=== PATIENT | female | born 2000 | race American Indian/Alaskan Native ===

== ENCOUNTER 2022-01-05 09:04 | Emergency (ER) | payer BC ==
[2022-01-05 09:19] VITALS: BP 101/61
[2022-01-05 11:07] LABS: Bilirubin,Urine NEG (Negative); Blood,Urine NEG (Negative); Color,Urine Yellow (Yellow); Mucus,Urine FEW /HPF; Protein,Urine <15 mg/dL mg/dL (Negative); Urobilinogen,Urine < 2.0 mg/dL (<2.0)
[2022-01-05 11:07] LABS: Hematocrit 39.6 % (30.3-42.9); Hemoglobin 12.9 gm/dl (10.1-14.3); Mean Corpuscular HGB Conc 33 % (30-34); Mean Corpuscular Volume 96 fl (79-97); Platelet Count 237 K/mm3 (140-440); Red Blood Count 4.11 M/mm3 (3.65-5.03); Red Cell Distribution Width 12.3 % (13.2-15.2)
[2022-01-05 11:12] LABS: Blood Urea Nitrogen 11 mg/dL (7-17); Calcium 9.1 mg/dL (8.4-10.2); Hemolysis Index 1
[2022-01-05 11:14] LABS: BUN/Creatinine Ratio 18
--- NOTE | 2022-01-05 11:52 | Emergency Department Report ---
ED Female HPI - General Chief complaint: Vaginal Bleeding Stated complaint: 9 OR 10 WEEKS PREG POSS MISCARRIAGE Time Seen by Provider: 01/05/22 09:57 Source: patient Mode of arrival: Ambulatory Limitations: No Limitations - History of Present Illness Initial comments: Patient is a 21-year-old female that comes to the emergency room complaining of vaginal bleeding. She states that she is . Patient has abdominal cramping. She states that she originally started to have spotting but then it progressed to heavier bleeding. She denies vaginal discharge. This is not her first . She has not seen an CASE MANAGEMENT COORDINATOR. Last menstrual period 10/12 On arrival to fast track patient is ambulatory and [id number]. MD Complaint: vaginal bleeding -: Gradual, days(s) Severity: mild Quality: cramping Worsens with: none Are you Now?: Yes Associated Symptoms: denies other symptoms, vaginal bleeding - Related Data Sexually active: Yes Allergies Allergy/AdvReac Type Severity Reaction Status Date / Time No Known Allergies Allergy Unverified 01/05/22 09:18 ED Review of Systems ROS: Stated complaint: 9 OR 10 WEEKS PREG POSS MISCARRIAGE Other details as noted in HPI Comment: All other systems reviewed and negative ED Past Medical Hx - Past Medical History Previous Medical History?: No - Surgical History Past Surgical History?: No - Family History Family history: no significant - Social History Smoking Status: Never Smoker Substance Use Type: Alcohol ED Physical Exam - General Limitations: No Limitations General appearance: alert, in no apparent distress - Head Head exam: Present: atraumatic, normocephalic - Eye Eye exam: Present: normal appearance - ENT ENT exam: Present: mucous membranes moist - Neck Neck exam: Present: normal inspection - Respiratory Respiratory exam: Present: normal lung sounds bilaterally. Absent: respiratory distress - Cardiovascular Cardiovascular Exam: Present: regular rate, normal rhythm. Absent: systolic murmur, diastolic murmur, rubs, gallop - GI/Abdominal GI/Abdominal exam: Present: soft, normal bowel sounds - Extremities Exam Extremities exam: Present: normal inspection - Back Exam Back exam: Present: normal inspection - Neurological Exam Neurological exam: Present: alert, oriented X3 - Psychiatric Psychiatric exam: Present: normal affect, normal mood - Skin Skin exam: Present: warm, dry, intact, normal color. Absent: rash ED Course Vital Signs 01/05/22 01/05/22 09:16 10:21 Temperature 97.9 F Pulse Rate 76 Respiratory 14 16 Rate Blood Pressure 101/61 O2 Sat by Pulse 98 99 Oximetry ED Medical Decision Making - Lab Data Result diagrams: 01/05/22 09:58 01/05/22 09:58 - Medical Decision Making Lab Results 01/05/22 01/05/22 01/05/22 Range/Units 09:58 09:58 09:58 WBC 4.1 L (4.5-11.0) K/mm3 RBC 4.11 (3.65-5.03) M/mm3 Hgb 12.9 (10.1-14.3) gm/dl Hct 39.6 (30.3-42.9) % MCV 96 (79-97) fl MCH 31 (28-32) pg MCHC 33 (30-34) % RDW 12.3 L (13.2-15.2) % Plt Count 237 (140-440) K/mm3 Sodium 136 L (137-145) mmol/L Potassium 4.1 (3.6-5.0) mmol/L Chloride 103.5 (98-107) mmol/L Carbon Dioxide 25 (22-30) mmol/L Anion Gap 12 mmol/L BUN 11 (7-17) mg/dL Creatinine 0.6 (0.6-1.2) mg/dL Estimated GFR > 60 ml/min BUN/Creatinine Ratio 18 % Glucose 96 (65-100) mg/dL Calcium 9.1 (8.4-10.2) mg/dL HCG, Quant 15640 H (0-4) mIU/mL Urine Color (Yellow) Urine Turbidity (Clear) Urine pH (5.0-7.0) Ur Specific [place] (1.003-1.030) Urine Protein (Negative) mg/dL Urine Glucose (UA) (Negative) mg/dL Urine Ketones (Negative) mg/dL Urine Blood (Negative) Urine Nitrite (Negative) Urine Bilirubin (Negative) Urine Urobilinogen (<2.0) mg/dL Ur Leukocyte Esterase (Negative) Urine WBC (Auto) (0.0-6.0) /HPF Urine RBC (Auto) (0.0-6.0) /HPF U Epithel Cells (Auto) (0-13.0) /HPF Urine WBC Clumps /HPF Urine Mucus /HPF Urine Yeast (Budding) /HPF Blood Type Ord Rhogam Gestat Weeks WEEKS 01/05/22 01/05/22 Range/Units 10:09 Unknown WBC (4.5-11.0) K/mm3 RBC (3.65-5.03) M/mm3 Hgb (10.1-14.3) gm/dl Hct (30.3-42.9) % MCV (79-97) fl MCH (28-32) pg MCHC (30-34) % RDW (13.2-15.2) % Plt Count (140-440) K/mm3 Sodium (137-145) mmol/L Potassium (3.6-5.0) mmol/L Chloride (98-107) mmol/L Carbon Dioxide (22-30) mmol/L Anion Gap mmol/L BUN (7-17) mg/dL Creatinine (0.6-1.2) mg/dL Estimated GFR ml/min BUN/Creatinine Ratio % Glucose (65-100) mg/dL Calcium (8.4-10.2) mg/dL HCG, Quant (0-4) mIU/mL Urine Color Yellow (Yellow) Urine Turbidity Cloudy (Clear) Urine pH 7.0 (5.0-7.0) Ur Specific [place] 1.023 (1.003-1.030) Urine Protein <15 mg/dl (Negative) mg/dL Urine Glucose (UA) Neg (Negative) mg/dL Urine Ketones Neg (Negative) mg/dL Urine Blood Neg (Negative) Urine Nitrite Neg (Negative) Urine Bilirubin Neg (Negative) Urine Urobilinogen < 2.0 (<2.0) mg/dL Ur Leukocyte Esterase Tr (Negative) Urine WBC (Auto) 20.0 H (0.0-6.0) /HPF Urine RBC (Auto) 4.0 (0.0-6.0) /HPF U Epithel Cells (Auto) 3.0 (0-13.0) /HPF Urine WBC Clumps 2+ /HPF Urine Mucus Few /HPF Urine Yeast (Budding) 2+ /HPF Blood Type O POSITIVE Ord Rhogam Gestat Weeks Rh pos WEEKS Vital Signs 01/05/22 01/05/22 09:16 10:21 Temperature 97.9 F Pulse Rate 76 Respiratory 14 16 Rate Blood Pressure 101/61 O2 Sat by Pulse 98 99 Oximetry 1200 patient left ER AMA, she has to get her children. AMA form signed. - Differential Diagnosis Rule out AB Critical care attestation.: If time is entered above; I have spent that time in minutes in the direct care of this critically ill patient, excluding procedure time. ED Disposition Clinical Impression: Vaginal bleeding during Disposition: 07 LEFT AGAINST MEDICAL ADVICE Is pt being admited?: No Does the pt Need Aspirin: No Condition: Stable Referrals: RADHA MARTINEZ MD [Primary Care Provider] - 3-5 Days Time of Disposition: 12:04
[2022-01-05] MEDS ORDERED: cefTRIAXone/NS 1 GM/50 ML 1 GM/50 ML BAG IV ONE (11:53)
[2022-01-05] MEDS ORDERED: SODIUM CHLORIDE 0.9% 1000 ML 1,000 ML IV ONE (11:53)
--- NOTE | 2022-01-05 12:27 | Ultrasound Report ---
[facility] OBSTETRIC ULTRASOUND HISTORY: Vaginal bleeding during COMPARISON: None. TECHNIQUE: Routine transabdominal OB ultrasound performed. FINDINGS: Uterus: Mildly enlarged measuring 11.4 x 6.9 x 8.3 cm. Gestational Sac: Well-defined oval shape and intrauterine in location. Yolk Sac: Normal in appearance. Fetus/Embryo: [place]-rump length of 3.6 cm, corresponding to an estimated gestational age of 10 weeks 3 days. Embryonic/ anatomy is too small for evaluation. Embryonic/ cardiac activity: 156bpm Placenta: Too small for evaluation. Amniotic fluid volume: Subjectively appropriate for gestational age. Ovaries: The right ovary is normal in size and appearance with normal blood flow, measuring 3.7 x 2. 7 x 3.4 cm. The left ovary is normal in size and appearance with normal blood flow, measuring 2.8 x 1.6 x 3.1 cm. A 2.6 cm simple appearing cyst is identified in the right ovary. Additional findings: None. IMPRESSION Early live intrauterine . No acute abnormality identified. 2.6 cm right ovarian cyst. Signer Name: Chacorta Fish Jr, MD Signed: 01/05/2022 12:22 PM Workstation Name: [id number]
== END 2022-01-05 12:08 | disposition left against medical advice (07) ==
LOC: ED 09:04
DX: O26.891 Other specified pregnancy related conditions, first trimester (principal); O46.91 Antepartum hemorrhage, unspecified, first trimester; F10.20 Alcohol dependence, uncomplicated; Z3A.10 10 weeks gestation of pregnancy
CPT/HCPCS: 36415; 76801; 80048; 81001; 84702; 85027; 86900; 86901; 87086; 99284

== ENCOUNTER 2022-01-05 15:10 | Emergency (ER) | payer BC ==
--- NOTE | 2022-01-05 17:00 | Emergency Department Report ---
ED Female HPI - General Stated complaint: MISCARRIAGE Time Seen by Provider: 01/05/22 16:57 Source: patient Mode of arrival: Ambulatory Limitations: Language Barrier - History of Present Illness Initial comments: See encounter 1 from today. Patient had to leave the ER to grain picker her children. She returns for test results. Worsens with: none Are you Now?: Yes Associated Symptoms: denies other symptoms, vaginal bleeding. denies: vaginal discharge, abdominal pain, nausea/vomiting, fever/chills, headaches, loss of appetite, dysuria, hematuria, rash, seizure, shortness of breath, syncope, weakness - Related Data Previous Rx's Medication Instructions Recorded Last Taken Type Amoxicillin [Trimox CAP] 500 mg PO BID #20 capsule 01/05/22 Unknown Rx Allergies Allergy/AdvReac Type Severity Reaction Status Date / Time No Known Allergies Allergy Unverified 01/05/22 09:18 ED Review of Systems ROS: Stated complaint: MISCARRIAGE Other details as noted in HPI Comment: All other systems reviewed and negative ED Past Medical Hx - Past Medical History Previous Medical History?: No - Family History Family history: no significant - Social History Smoking Status: Never Smoker Substance Use Type: Alcohol - Medications Home Medications: Home Medications Medication Instructions Recorded Confirmed Last Taken Type Amoxicillin [Trimox CAP] 500 mg PO BID #20 capsule 01/05/22 Unknown Rx ED Physical Exam - General General appearance: alert, in no apparent distress - Head Head exam: Present: atraumatic, normocephalic - Eye Eye exam: Present: normal appearance - ENT ENT exam: Present: mucous membranes moist - Neck Neck exam: Present: normal inspection - Respiratory Respiratory exam: Present: normal lung sounds bilaterally. Absent: respiratory distress - Cardiovascular Cardiovascular Exam: Present: regular rate, normal rhythm. Absent: systolic murmur, diastolic murmur, rubs, gallop - GI/Abdominal GI/Abdominal exam: Present: soft, normal bowel sounds - Extremities Exam Extremities exam: Present: normal inspection - Back Exam Back exam: Present: normal inspection - Neurological Exam Neurological exam: Present: alert, oriented X3 - Psychiatric Psychiatric exam: Present: normal affect, normal mood - Skin Skin exam: Present: warm, dry, intact, normal color. Absent: rash ED Medical Decision Making - Radiology Data Radiology results: report reviewed, image reviewed See report - Medical Decision Making See labs from first encounter today Rh+ Beta quant noted UTI noted- patient had been given normal saline and Rocephin on her first admission of the day Ultrasound noted. On patient's return to the ER she said that whomever did the ultrasound told her that she was having a miscarriage. I told her that is not how the radiologist has read her ultrasound. She needs to follow-up with PROGRAM MEDICAL DIRECTOR in 48 hours. Patient verbalizes understanding of discharge plan of care including diet, activity, medications and follow-up. Vital signs normal as documented manually by the RN - Differential Diagnosis Rule out AB/ectopic Critical care attestation.: If time is entered above; I have spent that time in minutes in the direct care of this critically ill patient, excluding procedure time. ED Disposition Clinical Impression: Vaginal bleeding during , UTI (urinary tract infection) Disposition: HOME / SELF CARE / HOMELESS Is pt being admited?: No Does the pt Need Aspirin: No Condition: Stable Additional Instructions: Stay well-hydrated with water Tylenol for pain Follow-up with PROGRAM MEDICAL DIRECTOR in 48 hours for recheck A referral has been given below Prescriptions: Amoxicillin [Trimox CAP] 500 mg PO BID #20 capsule Referrals: CHAPINCITO MOTT MD [Staff Physician] - 3-5 Days Time of Disposition: 17:00
== END 2022-01-05 17:44 | disposition home or self-care (01) ==
LOC: ED 15:10
DX: O46.90 Antepartum hemorrhage, unspecified, unspecified trimester (principal); O23.40 Unspecified infection of urinary tract in pregnancy, unspecified trimester; Z3A.00 Weeks of gestation of pregnancy not specified
CPT/HCPCS: 99281

== ENCOUNTER 2022-01-31 03:43 | Emergency (ER) | payer OTHER, BC, MEDICAID ==
[2022-01-31] MEDS ORDERED: ACETAMINOPHEN 325 MG TAB PO ONE (04:12)
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
[2022-01-31 06:03] VITALS: BP 100/78
--- NOTE | 2022-01-31 18:19 | Electrocardiograph Report ---
[facility] Test Date: 2022-01-31 Test Time: 04:14:48 Pat Name: NANO JERRY Department: Room: Gender: F [employer] Worker: PAUL : 2000 Requested By: MICHAEL WEISS Order Number: [id number] Reading MD: Verónica Golden Measurements Intervals [place] Rate: 92 P: 86 WY: 146 QRS: 69 QRSD: 87 T: 76 QT: 351 QTc: 435 Interpretive Statements Sinus rhythm No previous ECG available for comparison Electronically Signed On 01-31-2022 18:18:59 EDT by Verónica Golden
== END 2022-01-31 05:30 ==
LOC: ED 03:43
DX: O9A.211 Injury, poisoning and certain other consequences of external causes complicating pregnancy, first trimester (principal); Z3A.00 Weeks of gestation of pregnancy not specified; M25.562 Pain in left knee; V49.9XXA Car occupant (driver) (passenger) injured in unspecified traffic accident, initial encounter; Y93.89 Activity, other specified; Y92.89 Other specified places as the place of occurrence of the external cause; Y99.8 Other external cause status
CPT/HCPCS: 93005; 99283